=== PATIENT | male | born 1995 | race Caucasian/White ===

== ENCOUNTER 2018-03-18 03:56 | Emergency (ER) | payer SELFPAY ==
--- NOTE | 2018-03-18 04:18 | ED ---
Substance Abuse/Use - HPI Summary HPI Summary: This patient is a 22 year old M QUINTEN to [facility] after found sleeping on the porch of a different residence. Patient reports drinking this evening and denies drug use. - History Of Current Complaint Chief Complaint: EDSubstanceAbuse Stated Complaint: 2208 Time Seen by Provider: 03/18/18 03:57 Hx Obtained From: Patient, EMS - alcohol Onset/Duration of Drug/ETOH Abuse: Hours Ingestion History: Type/Name Of Drug Overdose Characteristics: Oral Associated Signs And Symptoms: Negative - Allergies/Home Medications Allergies/Adverse Reactions: Allergies Allergy/AdvReac Type Severity Reaction Status Date / Time No Known Allergies Allergy Verified 03/18/18 04:05 Home Medications: Home Medications Unobtainable 03/18/18 [History Confirmed 03/18/18] PMH/Surg Hx/FS Hx/Imm Hx History: Denies: Hx Acute Renal Failure EENT History: Denies: Hx Deafness - Immunization History Date of Tetanus Vaccine: unk Date of Influenza Vaccine: unk Infectious Disease History: No Infectious Disease History: Denies: Traveled Outside the [place] in Last 30 Days - Family History Known Family History: Negative: Cardiac Disease - Social History Alcohol Use: Occasionally Alcohol Amount: highly intoxicated at this time Substance Use Type: Reports: None Substance Use Comment - Amount & Last Used: Unknown Smoking Status (MU): Unknown if Ever Smoked Review of Systems Positive: Other - etoh intoxication Negative: Myalgia All Other Systems Reviewed And Are Negative: Yes Physical Exam - Summary Physical Exam Summary: Appearance: Well-nourished, lying in bed comfortably, answers questions appropriately Skin: Warm, dry, no obvious rash Eyes: sclera anicteric, no conjunctival pallor ENT: mucous membranes moist, pharynx appears normal Neck: Supple, nontender Respiratory: Clear to auscultation, no signs of respiratory distress Cardiovascular: Normal S1, S2. No murmurs. Normal distal pulses in tibial and radial bilaterally. Abdomen: Soft, nontender, normal active bowel sounds present Musculoskeletal: Normal, Strength/ROM Intact Neurological: A&Ox3, awake and alert, mentation is normal, speech is fluent and appropriate Psychiatric: guarded affect, does not appear anxious or depressed Triage Information Reviewed: Yes Vital Signs On Initial Exam: Initial Vitals Temp Pulse Resp BP Pulse Ox 97.3 F 103 22 163/97 96 03/18/18 04:01 03/18/18 04:01 03/18/18 04:01 03/18/18 04:01 03/18/18 04:01 Vital Signs Reviewed: Yes Diagnostics - Vital Signs Vital Signs Temp Pulse Resp BP Pulse Ox 03/18/18 04:01 97.3 F 103 22 163/97 96 - Laboratory Lab Statement: Any lab studies that have been ordered have been reviewed, and results considered in the medical decision making process. Course/Dx - Course Course Of Treatment: 22 year old M QUINTEN to [facility] after found sleeping on the porch of a different residence. Patient reports drinking this evening and denies drug use. While in ED patient sleeps through night without disruption. Patient is discharged once sober. Discharge - Sign-Out/Discharge Documenting (check all that apply): Patient Departure - discharge - Discharge Plan Condition: Improved Disposition: HOME Patient Education Materials: Alcohol Intoxication (ED), Abuse of Alcohol (ED) Referrals: [facility] [Outside] - If Needed - Attestation Statements Document Initiated by Scribe: Yes Documenting Scribe: Ashlee Aaron Provider For Whom Scribe is Documenting (Include Credential): Enrique Mcpherson MD Scribe Attestation: Ashlee Frank, scribed for Enrique Mcpherson MD on 03/18/18 at 0612.
[2018-03-18 07:58] VITALS: BP 120/63
== END 2018-03-18 07:57 | disposition home or self-care (01) ==
LOC: ED 03:56
DX: F10.129 Alcohol abuse with intoxication, unspecified (principal)
CPT/HCPCS: 99282